=== PATIENT | female | born 1955 | race Caucasian/White ===

== ENCOUNTER → 2022-02-18 | Outpatient (CLI) | payer SELFPAY ==
--- NOTE | 2022-02-18 15:35 | RAD_ITS ---
INDICATION: PAIN EXAMINATION/TECHNIQUE: X-RAY - XR Spine Cervical 6 or More Views COMPARISON: None. FINDINGS: Mild exaggeration of the lordosis of the columns of the cervical spine is visualized. Unremarkable alignment of the lateral masses of C1 with C2. Multilevel degenerative endplate changes visualized with osteophyte formation, no evidence of compression deformity of the cervical vertebral bodies. Decreased intervertebral disc height visualized most prominent at C5-C6, C4-C5. The prevertebral and posterior neck soft tissues are unremarkable. Oblique images demonstrate no significant narrowing of the neuroforamina except for mild narrowing at on the right C5-C6 and C6-C7. Limited evaluation of the upper lung green are unremarkable. RAD/Cerv Spine Obl/Flex/Ext Comp IMPRESSION: Degenerative changes of the cervical spine. Electronically Signed: Jerry Moore MD at 16:43 EDT ,
== END | disposition home or self-care (01) ==
PROVIDERS: PCP Family Medicine
DX: M48.02 Spinal stenosis, cervical region (principal); M47.812 Spondylosis without myelopathy or radiculopathy, cervical region
CPT/HCPCS: 72052